=== PATIENT | male | born 1945 | race Hispanic/Latino ===

== ENCOUNTER 2023-08-13 11:12 | Emergency (ER) | payer MEDICARE, SELFPAY ==
[2023-08-13] VITALS (12 sets, daily range): BP systolic 140–163; BP diastolic 55–63; PULSE 74–84; RESP 12–26; TEMP 36.3; O2SAT 97–100
[2023-08-13] MEDS: HYDROcodone/acetaminophen (*CRX) 5-325 MG TABLET 1 TAB PO (13:58)
--- NOTE | 2023-08-13 14:01 | ED.BACK ---
HPI - Back Pain/Injury General Chief Complaint: Back Pain/Injury Stated Complaint: lower back pain, radiates down the R leg Time Seen by Provider: 08/13/23 13:35 History of Present Illness HPI Narrative: Patient is a 77-year-old male who presents to the emergency this afternoon complaining of a perirectal nerve pain radiating to his bilateral buttocks and shooting down his right lower extremity. Patient states that this pain started approximately 1 week after he finished radiation therapy for prostate cancer which finished approximately 3 weeks ago. Patient is asking about possible injections to help with the pain. Patient did bring this to his physicians at attention and was informed that this is likely a nerve pain due to nerve damage from his radiation. Patient denies any recent falls or trauma. On the 25 of July patient went to an outside facility and had an MRI of his pelvis and lumbar spine along with CT scans and x-rays and everything looked normal. Patient was informed secondary to the normal scan this is likely nerve pain. Patient has not been taking any medications at home for this and states that the pain is worse at night and prevents him from sleeping. He denies any issues with defecating and denies any rectal bleeding. No additional symptoms or concerns at this time. Related Data Allergies Allergy/AdvReac Type Severity Reaction Status Date / Time No Known Allergies Allergy Verified 08/13/23 12:08 Review of Systems Review of Systems: All systems are reviewed and are negative unless stated otherwise in the HPI. Exam Narrative: General: Alert, awake, afebrile, in no acute distress. HEENT: PERRL, no rhinorrhea, no post nasal drip, oropharynx clear. Cardiovascular: Regular rate and rhythm, no murmurs, rubs or gallops, no peripheral edema. Respiratory: Clear to auscultation bilaterally, no tachypnea, no wheezing, no rhonchi, no rubs, no respiratory distress. Abdomen: Soft, nontender, nondistended, no rebound, no guarding, no peritoneal signs. Rectal: Exam performed the presence of female nurse crystalizer operator revealing good rectal tone, no skin irritation or a rash. Musculoskeletal: No joint swelling or deformity, normal muscle tone. Skin: No rashes or petechia, no signs of infection. Neurological: Alert and oriented to person, place, and time. Follows all commands. No focal deficits, speech is clear and fluent. Course Vital Signs Vital signs: Vital Signs Temperature 97.4 F L 08/13/23 11:16 Pulse Rate 84 08/13/23 11:16 Respiratory Rate 16 08/13/23 11:16 Blood Pressure 161/55 H 08/13/23 11:16 Pulse Oximetry 98 08/13/23 11:16 Oxygen Delivery Room Air 08/13/23 11:16 Temperature 97.4 F L 08/13/23 11:16 Pulse Rate 80 08/13/23 14:00 Respiratory Rate 19 08/13/23 14:00 Blood Pressure 163/57 H 08/13/23 14:00 Pulse Oximetry 100 08/13/23 14:00 Oxygen Delivery Room Air 08/13/23 11:16 MDM - Back Pain/Injury MDM Narrative Medical decision making narrative: The patient was evaluated by myself in the emergency department. History is obtained from patient who is an independent historian and physical exam was performed. External medical records were reviewed at this time. Patient was administered an oral Fisher 5-325 mg for lower back/sciatic pain. No imaging studies were obtained at this time as patient recently had MRIs and CT scans of his pelvis and lumbar spine which were noted to be normal. Differential diagnosis considerations include neuropathic pain, skin irritation, radiculopathy and sciatica. Comorbidities impacting this visit include recent radiation for prostate cancer. I have evaluated and discussed social determinants of health with the patient that could potentially impact subsequent diagnosis and treatment plans. On repeat assessment of the patient, reevaluation revealed that the patient is doing well and is in no acute distress. Patient symptoms have imp
== END 2023-08-13 14:22 | disposition home or self-care (01) ==
LOC: ANHED 14:08
PROVIDERS: Emergency Provider Emergency Medicine
DX: M54.31 Sciatica, right side (principal); C61 Malignant neoplasm of prostate; Z92.3 Personal history of irradiation
CPT/HCPCS: 99283; A9270